=== PATIENT | female | born 1960 | race Hispanic/Latino ===

== ENCOUNTER → 2025-01-05 | Day surgery (SDC) | payer MEDICARE ==
[2025-01-04 15:09] LABS: BASOPHILS % 0.4 % (0.0-1.0); EOSINOPHILS % 0.3 % (0.0-6.0); LYMPHOCYTES % 19.1 % (18.0-39.1); MONOCYTES % 7.1 % (4.4-11.3); NEUTROPHILS % 72.7 % (38.7-80.0); RED CELL DISTRIBUTION WIDTH 14.0 % (11.7-14.4)
[~2025-01-05] MED LIST: ACETAMINOPHEN 1000 MG/100 ML 0 ML IV ONE; ACETAMINOPHEN 1000 MG/100 ML 100 ML IV ONE; ACETAMINOPHEN 1000 MG/100 ML IV PRN; ASPIRIN 325 MG TAB PO SCH; CELECOXIB 100 MG CAP PO SCH; DEXAMETHASONE SOD PHOS INJ 4 MG/ML SDV ONE; DIPHENHYDRAMINE HCL INJ 50 MG/ML VIAL IV PRN; DOCUSATE SODIUM 100 MG CAP PO PRN; FENTANYL CITRATE/PF 100MCG/2 ML INJ ONE; HYDROCODONE/APAP 5MG-325MG TAB PO PRN; HYDROCODONE/APAP 7.5MG-325MG 1 EA TAB PO PRN; LIDOCAINE HCL 2% LOCAL INJ 5 ML SDV VIAL INJ ONE; METOCLOPRAMIDE HCL 10 MG/2ML VIAL ONE; ONDANSETRON HCL INJ 2MG/ML 2ML 2 MG/ML VIAL IV PRN; ONDANSETRON HCL INJ 2MG/ML 2ML 2 MG/ML VIAL ONE; PROPOFOL IV EMULSION 10 MG/ML 20 ML VIAL ONE; ROPIVACAINE/EPI/CLONIDINE/KET 50 ML SYRINGE INJ ONE; SEVOFLURANE INHAL SOLN 250 ML PEN BTL ONE; SODIUM CHLORIDE 0.9% 1000ML 1,000 ML IV SCH
[2025-01-05] MEDS: DEXAMETHASONE SOD PHOS 10 MG/1 ML VIAL ONE (07:47)
[2025-01-05] MEDS: LACTATED RINGER'S 1,000 ML ONE (07:48)
[2025-01-05] MEDS: CEFAZOLIN SODIUM 2 GM ONE (07:48)
[2025-01-05] MEDS: CELECOXIB 200 MG CAP ONE (07:49)
[2025-01-05] MEDS: GABAPENTIN 300 MG CAP ONE (07:49)
[2025-01-05 11:40] VITALS: TEMP 97.5
[2025-01-05] MEDS: HYDROCODONE/APAP 7.5MG-325MG 1 EA TAB PO ONE (12:50)
[2025-01-05 14:00] VITALS: BP 118/79; PULSE 78; RESP 18; O2SAT 98
== END | disposition home or self-care (01) ==
LOC: OR 07:30
PROVIDERS: ATTEND Specialist
DX: M17.12 Unilateral primary osteoarthritis, left knee (principal); E66.01 Morbid (severe) obesity due to excess calories; F41.9 Anxiety disorder, unspecified; F32.A Depression, unspecified; Z01.810 Encounter for preprocedural cardiovascular examination; Z01.812 Encounter for preprocedural laboratory examination; Z68.35 Body mass index [BMI] 35.0-35.9, adult
CPT/HCPCS: 27447; 36415; 71046; 73560; 85025; 86850; 86900; 93005; 97110; 97116; 97161; C1713 ×2; C1776 ×2; J0131; J1100; J2003; J2405; J2704; J2765; J3010; J7121